=== PATIENT | female | born 1995 | race Caucasian/White ===

== ENCOUNTER 2017-07-03 14:58 | Inpatient (IN) | payer MEDICAID ==
[~2017-07-03] VITALS: Ht 170.2 cm; Wt 82.0 kg
[2017-07-03 17:01] LABS: AUTOMATED NEUTROPHIL # 7.2 TH/MM3 (1.8-7.7); BASOPHIL % 0.3 % (0.0-2.0); EOSINOPHIL % 0.4 % (0.0-4.0); HEMATOCRIT 33.6 % (35.0-46.0); HEMO FLAGS DIFF FINAL; LYMPH % 18.8 % (9.0-44.0); LYMPHOCYTE # 1.8 TH/MM3 (1.0-4.8); MEAN CELL VOLUME 87.3 FL (80.0-100.0); MEAN CORPUSCULAR HEMOGLOBIN 29.6 PG (27.0-34.0); MEAN CORPUSCULAR HGB CONC 33.9 % (32.0-36.0); NEUT % 76.5 % (16.0-70.0); PLATELET COUNT 134 TH/MM3 (150-450); RED BLOOD COUNT 3.84 MIL/MM3 (4.00-5.30); WHITE BLOOD COUNT 9.4 TH/MM3 (4.0-11.0)
[2017-07-03 17:33] LABS: ALT (GPT) 16 U/L (10-53); ANION GAP 10 MEQ/L (5-15); AST (GOT) 16 U/L (15-37); BICARBONATE 22.2 MEQ/L (21.0-32.0); BLOOD UREA NITROGEN 7 MG/DL (7-18); CHLORIDE 107 MEQ/L (98-107); GLOMERULAR FILTRATION RATE 241 ML/MIN (>89); POTASSIUM 3.5 MEQ/L (3.5-5.1); SODIUM (NA) 139 MEQ/L (136-145); URIC ACID 4.5 MG/DL (2.6-6.0)
[2017-07-03 17:36] LABS: ALKALINE PHOSPHATASE 200 U/L (45-117); TOTAL BILIRUBIN ADULT 0.4 MG/DL (0.2-1.0)
[2017-07-03] MEDS ORDERED: SODIUM CHLORIDE 0.9% FLUSH 5 ML FLUSH IV FLUSH PRN (18:15)
[2017-07-03] MEDS ORDERED: ONDANSETRON HCL 4 MG/2 ML VIAL IV PUSH PRN (18:15)
[2017-07-03] MEDS ORDERED: ACETAMINOPHEN 325 MG TAB PO PRN (18:15)
[2017-07-03] MEDS ORDERED: DOCUSATE SODIUM 100 MG CAP PO PRN (18:15)
[2017-07-03] MEDS ORDERED: ONDANSETRON ODT 4 MG TAB PO PRN (18:15)
[2017-07-03] MEDS ORDERED: ZOLPIDEM TARTRATE 5 MG TAB PO PRN (18:15)
[2017-07-03] MEDS: BETAMETHASONE SOD PHOS/ACETATE SUSP 30 MG/5 ML VIAL IM SCH (18:38)
--- NOTE | 2017-07-03 18:42 | PD.PN.STU ---
Subjective Remarks LAURYN Dexter is a 36 week and 1 day IUP with signs of pre-eclampsia and is clinically asymptomatic. Patient is a pleasant single white female who presented in clinic today for a normal checkup with a blood pressure of 130/90, 4+ protein on urinalysis, and 12lb weight gain in 2 weeks. She was sent to the hospital. She has noticed shortness of breath while laying flat for the past two nights and has been experiencing leg swelling over the past week. She denies any nausea, vomiting, headaches or visual changes. The patient has no signs of labor, no leaking, or contractions. The baby is moving well. The patient had late and unremarkable care at 29 weeks. Delayed care was for health insurance reasons. She was treated twice for chlamydia but has not received a test of cure yet. She is hep C negative and strep B negative. The patient does not smoke, drink, or do drugs. She was raised in the foster care system and her foster mom (Isabel) is very involved. Review of systems otherwise negative Past medical history is unremarkable Past surgical history is pertinent for Winn ryan placed for scoliosis. Physical Exam per Dr. Fonseca. General: Patient does not appear ill looking, not in acute distress. Pulmonary: breath sounds bilateral and equal Cardio: No gallops or murmurs heard Abdominal: Fundus height congruent with gestational weeks, no upper quadrant tenderness Pelvic: No signs of labor, no leakage, no blood Impression: , Pre-eclampsia Plan: 24 urine protein collection, steroids for lung development, repeat testing of platelets in a.m., perform chlamydia test of cure Objective Result Diagram: 07/03/17 1630 07/03/17 1630 A/P Assessment and Plan Impression: , Pre-eclampsia Plan: 24 urine protein collection, steroids for lung development, repeat testing of platelets in a.m., perform chlamydia test of cure Arlen Leyva Jul 03, 2017 18:42
--- NOTE | 2017-07-03 18:59 | MH ---
cc: LUPE GRACIA DATE OF ADMISSION 07/03/2017 DATE OF 95 CHIEF COMPLAINT She is 36 and 1 day with signs of preeclampsia and no symptoms, sent over from the office. HISTORY OF PRESENT CONDITION The patient is a pleasant 21-year-old single white female 1, para 0 with an estimated gestational age of 36 weeks and 1 day and an estimated date of confinement of July 30, 2017. We do not have an LMP and her first visit with us was at about the 26 weeks so these are not hard dates. She was a late entry to care because of a difficulty finding out how to get Medicaid and enter into a private office. We saw her through the all access clinic at the [facility]. Her general health is good. She had the routine labs and was found to have Chlamydia and was treated twice but we have not yet gotten a test of cure. She has not had labor. Her Glucola was 98 so she has no gestational diabetes and up until today showed no signs of hypertensive condition. She has had a total of five visits with us and on today's visit at 36 and 1/7 week she came in with a blood pressure of 130/90, a 12 pounds weight gain in 2 weeks and 4+ protein on the urine. She denied headache, nausea, vomiting, blurred vision or right upper quadrant tenderness. PHYSICAL EXAMINATION On physical in the office her fundal height is consistent with 36 weeks. LUNGS: Her lungs were clear. HEART: Heart was regular. DIRECTED EXAMINATION: was in vertex position. She had no CVA tenderness. No hepatosplenomegaly. No liver tenderness. The perineum was normal. The cervix was long, closed, somewhat soft, mid position. EXTREMITIES: She had 3 to 4+ edema of the extremities and normoreflexic. SOCIAL HISTORY She does not smoke, drink or use illicit drugs. Her social history is that she has been in the foster system but had a consistent mom by the name of Criselda who was very involved. She has a significant other who is with her for this . IMPRESSION 36 week intrauterine in a ___ with new onset of hypertension, proteinuria and swelling. We are doing a 24-hour urine, giving her steroids. We have found that her platelets are a little low at 134 but her liver function studies are normal. Uric acid is borderline and fibrinogen is in normal range. PLAN The plan is to watch overnight with continuous monitoring. Allow her to eat. Obtain her 24-hour urine. Complete the steroid course and then follow up as indicated based on her progression or stabilization of disease. Lupe Gracia MD PPC/EO /6:28 PM /6:34 PM
[2017-07-03] MEDS: SODIUM CHLORIDE 0.9% FLUSH 5 ML FLUSH IV FLUSH SCH (21:00)
[2017-07-03] MEDS: SODIUM CHLORIDE 0.9% FLUSH 10 ML FLUSH IV FLUSH SCH (21:00)
[2017-07-03 22:37] LABS: CHLAMYDIA PCR NOT DETECTED (NOT DETECT); NEISSERIA PCR NOT DETECTED (NOT DETECT)
[2017-07-04 05:51] LABS: HEMATOCRIT 32.7 % (35.0-46.0); MEAN CELL VOLUME 87.3 FL (80.0-100.0); MEAN CORPUSCULAR HEMOGLOBIN 29.9 PG (27.0-34.0); MEAN CORPUSCULAR HGB CONC 34.2 % (32.0-36.0); PLATELET COUNT 123 TH/MM3 (150-450); RED BLOOD COUNT 3.75 MIL/MM3 (4.00-5.30); RED CELL DISTRIBUTION WIDTH 13.1 % (11.6-17.2); REVIEW FLAG FINAL; WHITE BLOOD COUNT 9.7 TH/MM3 (4.0-11.0)
[2017-07-04 06:23] LABS: ANION GAP 12 MEQ/L (5-15); AST (GOT) 15 U/L (15-37); BICARBONATE 21.4 MEQ/L (21.0-32.0); BLOOD UREA NITROGEN 6 MG/DL (7-18); CHLORIDE 105 MEQ/L (98-107); GLOMERULAR FILTRATION RATE 206 ML/MIN (>89); POTASSIUM 3.6 MEQ/L (3.5-5.1); SODIUM (NA) 138 MEQ/L (136-145)
[2017-07-04 06:25] LABS: ALT (GPT) 17 U/L (10-53)
[2017-07-04 06:28] LABS: ALKALINE PHOSPHATASE 193 U/L (45-117); TOTAL BILIRUBIN ADULT 0.2 MG/DL (0.2-1.0)
[2017-07-04] MEDS: SODIUM CHLORIDE 0.9% FLUSH 10 ML FLUSH IV FLUSH SCH (07:16)
[2017-07-04] MEDS: SODIUM CHLORIDE 0.9% FLUSH 5 ML FLUSH IV FLUSH SCH (08:39)
[2017-07-04] MEDS: MULTIVIT/MIN/PREN/FOL AC/IRON PRENATAL TAB PO SCH (08:39)
[2017-07-04] MEDS ORDERED: PREN29TA PO (08:57)
--- NOTE | 2017-07-04 10:48 | PD.OB.ANTE ---
Subjective Interval History No c/o, no H/A, BV, abd. pain, good GFM Objective Lab & Micro Results Test 07/03/17 16:30 07/03/17 19:10 07/04/17 05:16 White Blood Count 9.4 TH/MM3 9.7 TH/MM3 Red Blood Count 3.84 MIL/MM3 3.75 MIL/MM3 Hemoglobin 11.4 GM/DL 11.2 GM/DL Hematocrit 33.6 % 32.7 % Mean Corpuscular Volume 87.3 FL 87.3 FL Mean Corpuscular Hemoglobin 29.6 PG 29.9 PG Mean Corpuscular Hemoglobin Concent 33.9 % 34.2 % Red Cell Distribution Width 13.0 % 13.1 % Platelet Count 134 TH/MM3 123 TH/MM3 Mean Platelet Volume 11.0 FL 11.1 FL Neutrophils (%) (Auto) 76.5 % Lymphocytes (%) (Auto) 18.8 % Monocytes (%) (Auto) 4.0 % Eosinophils (%) (Auto) 0.4 % Basophils (%) (Auto) 0.3 % Neutrophils # (Auto) 7.2 TH/MM3 Lymphocytes # (Auto) 1.8 TH/MM3 Monocytes # (Auto) 0.4 TH/MM3 Eosinophils # (Auto) 0.0 TH/MM3 Basophils # (Auto) 0.0 TH/MM3 CBC Comment DIFF FINAL Differential Comment Fibrinogen 449 mg/dL Blood Urea Nitrogen 7 MG/DL 6 MG/DL Creatinine 0.34 MG/DL 0.39 MG/DL Random Glucose 60 MG/DL 152 MG/DL Total Protein 6.0 GM/DL 5.7 GM/DL Albumin 2.8 GM/DL 2.6 GM/DL Calcium Level 8.8 MG/DL 8.9 MG/DL Uric Acid 4.5 MG/DL 4.0 MG/DL Alkaline Phosphatase 200 U/L 193 U/L Aspartate Amino Transf (AST/SGOT) 16 U/L 15 U/L Alanine Aminotransferase (ALT/SGPT) 16 U/L 17 U/L Total Bilirubin 0.4 MG/DL 0.2 MG/DL Sodium Level 139 MEQ/L 138 MEQ/L Potassium Level 3.5 MEQ/L 3.6 MEQ/L Chloride Level 107 MEQ/L 105 MEQ/L Carbon Dioxide Level 22.2 MEQ/L 21.4 MEQ/L Anion Gap 10 MEQ/L 12 MEQ/L Estimat Glomerular Filtration Rate 241 ML/MIN 206 ML/MIN Chlamydia trachomatis DNA (PCR) NOT DETECTED Neisseria gonorrhoeae DNA (PCR) NOT DETECTED Physical Exam GENERAL: Well-nourished, well-developed patient. CARDIOVASCULAR: Regular rate and rhythm without murmurs, gallops, or rubs. RESPIRATORY: Breath sounds equal bilaterally. No accessory muscle use. ABDOMEN/GI: Abdomen soft, non-tender. FHT's: Category: 1 EXTREMITIES: No cyanosis or edema, non-tender, without signs of DVT. Assessment and Plan Assessment and Plan 36 + week PIH, 24h urine in progress, BPR stable, CAT 1 FHR, Slight drop in plt ct. remaining labs all normal. Discussed cont, monitoring on BR, await 24h urine, Patient aware of plan of management Amador Rock MD Jul 04, 2017 10:48
[2017-07-04] MEDS: BETAMETHASONE SOD PHOS/ACETATE SUSP 30 MG/5 ML VIAL IM SCH (18:43)
[2017-07-04 20:59] LABS: URINE TOTAL PROTEIN TIMED 44.8 MG/DL
[2017-07-05] VITALS (140 sets, daily range): BP systolic 108–162; BP diastolic 59–84; PULSE 51–77; RESP 16–18; TEMP 98–98.2; O2SAT 92–100
[2017-07-05 05:54] LABS: HEMATOCRIT 31.1 % (35.0-46.0); MEAN CORPUSCULAR HEMOGLOBIN 30.6 PG (27.0-34.0); MEAN CORPUSCULAR HGB CONC 34.7 % (32.0-36.0); PLATELET COUNT 114 TH/MM3 (150-450); RED BLOOD COUNT 3.53 MIL/MM3 (4.00-5.30); RED CELL DISTRIBUTION WIDTH 12.9 % (11.6-17.2); REVIEW FLAG FINAL; WHITE BLOOD COUNT 10.9 TH/MM3 (4.0-11.0)
[2017-07-05 06:16] LABS: BICARBONATE 22.2 MEQ/L (21.0-32.0); POTASSIUM 3.6 MEQ/L (3.5-5.1)
[2017-07-05] MEDS ORDERED: LACTATED RINGER'S 1000 ML INJ 1,000 ML IV ONE ×2 (07:39→12:00)
--- NOTE | 2017-07-05 07:46 | PD.OB.ANTE ---
Subjective Interval History 24 hour urine is 1.4 gm platelets going down no [place] or blurred vision No UC's, leaking or bleeding GFM Objective Lab & Micro Results Test 07/04/17 17:45 07/05/17 04:13 Urine Total Volume 24 Hours 3160 ML Urine Total Protein 24 Hour 1416 MG/24HR White Blood Count 10.9 TH/MM3 Red Blood Count 3.53 MIL/MM3 Hemoglobin 10.8 GM/DL Hematocrit 31.1 % Mean Corpuscular Volume 88.0 FL Mean Corpuscular Hemoglobin 30.6 PG Mean Corpuscular Hemoglobin Concent 34.7 % Red Cell Distribution Width 12.9 % Platelet Count 114 TH/MM3 Mean Platelet Volume 12.0 FL Blood Urea Nitrogen 8 MG/DL Creatinine 0.43 MG/DL Random Glucose 170 MG/DL Calcium Level 8.4 MG/DL Uric Acid 4.0 MG/DL Aspartate Amino Transf (AST/SGOT) 13 U/L Alanine Aminotransferase (ALT/SGPT) 18 U/L Sodium Level 141 MEQ/L Potassium Level 3.6 MEQ/L Chloride Level 108 MEQ/L Carbon Dioxide Level 22.2 MEQ/L Anion Gap 11 MEQ/L Estimat Glomerular Filtration Rate 184 ML/MIN Physical Exam GENERAL: Well-nourished, well-developed patient. CARDIOVASCULAR: Regular rate and rhythm without murmurs, gallops, or rubs. RESPIRATORY: Breath sounds equal bilaterally. No accessory muscle use. ABDOMEN/GI: Abdomen soft, non-tender. FH 36 cm Long/closed/thick strip category 1 EXTREMITIES: No cyanosis or edema, non-tender, without signs of DVT. Assessment and Plan Assessment and Plan 36 + week PIH, 24h urine in progress, BPR stable, CAT 1 FHR, Slight drop in plt ct. remaining labs all normal. Discussed cont, monitoring on BR, await 24h urine, Patient aware of plan of management HD 3 36 and 2 indices favor primary section discussed risks, benefits and expectations to follow surgery upstairs. Mandy Fonseca MD Jul 05, 2017 07:46
[2017-07-05] MEDS ORDERED: LACTATED RINGER'S 1000 ML INJ 1,000 ML IV SCH ×2 (08:09→17:57)
[2017-07-05] MEDS: SODIUM CHLORIDE 0.9% FLUSH 10 ML FLUSH IV FLUSH SCH (08:17)
[2017-07-05] MEDS: SODIUM CHLORIDE 0.9% FLUSH 5 ML FLUSH IV FLUSH SCH (08:17)
[2017-07-05] MEDS ORDERED: OXYTOCIN 10 UNIT/ML AMP ONE (08:28)
[2017-07-05] MEDS ORDERED: ceFAZolin 2 GM PREMIX 50 ML IV SCH (08:45)
[2017-07-05] MEDS: MULTIVIT/MIN/PREN/FOL AC/IRON PRENATAL TAB PO SCH (09:00)
[2017-07-05] MEDS ORDERED: CITRIC ACID-SODIUM CITRATE LIQ 30 ML UDC PO SCH (09:15)
[2017-07-05] MEDS ORDERED: GLYCOPYRROLATE 1 MG/5 ML SYRINGE IV PUSH ONE (12:00)
[2017-07-05] MEDS ORDERED: LIDOCAINE HCL 1% PF 5 ML AMPULE OTHER ONE (12:00)
[2017-07-05] MEDS ORDERED: ePHEDrine/NS 25 MG/5 ML SYR IV ONE (12:00)
[2017-07-05] MEDS ORDERED: DEXAMETHASONE SOD PHOS 4 MG/ML VIAL IV ONE (12:00)
[2017-07-05] MEDS ORDERED: ROCURONIUM INJ 50 MG/5 ML SYRINGE IV PUSH ONE (12:00)
[2017-07-05] MEDS ORDERED: PHENYLEPHRINE HCL 10 MG/ML VIAL IV ONE (12:00)
[2017-07-05] MEDS ORDERED: OXYTOCIN 10 UNIT/ML AMP IV ONE (12:00)
[2017-07-05] MEDS ORDERED: ONDANSETRON HCL 4 MG/2 ML VIAL IV PUSH ONE ×2 (12:00)
[2017-07-05] MEDS ORDERED: PHENYLEPH/NS 1000 MCG/10 ML SYR IV ONE (12:00)
[2017-07-05] MEDS ORDERED: MORPHINE SULFATE PF 5 MG/10 ML VIAL ONE (12:00)
[2017-07-05] MEDS ORDERED: MIDAZOLAM HCL 2 MG/2 ML VIAL IV ONE (12:00)
[2017-07-05] MEDS ORDERED: PROPOFOL 200 MG/20 ML AMP IV ONE (12:00)
[2017-07-05] MEDS ORDERED: NEOSTIGMINE 3 MG/3 ML SYR IV ONE (12:00)
[2017-07-05] MEDS ORDERED: EPIDURAL-DO NOT ADMINISTER ANTICOAGULANTS PRN (12:22)
[2017-07-05 13:00] LABS: BLOOD GAS BASE EXCESS 1.6 mmol/L (-2-2); BLOOD GAS O2 HGB SATURATION 10 % (90-100); CORD BLOOD GAS HCO3 28 mmol/L (21-29); CORD BLOOD GAS PCO2 66 mmHG (34-78); CORD BLOOD GAS PH 7.25 (7.14-7.42)
[2017-07-05] MEDS ORDERED: ZOLPIDEM TARTRATE 5 MG TAB PO PRN (13:00)
[2017-07-05] MEDS ORDERED: ONDANSETRON HCL 4 MG/2 ML VIAL IV PUSH PRN (13:00)
[2017-07-05] MEDS ORDERED: SODIUM CHLORIDE 0.9% FLUSH 10 ML FLUSH IV FLUSH PRN (13:00)
[2017-07-05 13:01] LABS: CORD BLOOD GAS PO2 11 mmHG (3.0-40.0); DRAW SITE CORD BLOOD; STAT NO
--- NOTE | 2017-07-05 13:02 | PD.OB.DELI ---
Procedure Note Section Procedure Performed by Mandy Fonseca Procedure: Primary Low Transverse Sec Indication for delivery: Maternal medical problems Previous condition: None Informed consent obtained: For anesthesia, For procedure, Other Confirmed correct: Patient, Procedure, Site, Time-out taken Anesthesia: Spinal Medication prior to procedure: As documented in eMAR Monitoring during procedure: Blood pressure monitoring, monitor, Pulse oximetry Urinary catheter: Inserted using sterile technique, To dependent drainage, ml urine output Sterile preparation: Duraprep, In usual fashion, With 2% chlorexidine ( Hibiclens) Position: Supine with wedge to right side Operative Features Skin Incision: Pfannenstiel Uterine Incision: Low transverse w/knife / blunt ext Membranes Ruptured: Artificially, Appearance of fluid (ceal;r) Delivery date: Jul 05, 2017 Delivery time: 13:00 Delivery of : Assisted, Uneventful, Umbilical cord : Male One Minute : 8 Five Minute : 8 Weight: 5 14 Status of infant: Viable, Cord blood, Umbilical cord, Nursery present Placenta delivered: Intact Medications: Antibiotics Estimated blood loss: 500 Procedure tolerated: Well Maternal Condition: Stable Condition: Stable Procedure in detail dictated Mandy Fonseca MD Jul 05, 2017 13:02
[2017-07-05] MEDS ORDERED: MORPHINE SULFATE 4 MG/ML INJ ONE (13:34)
--- NOTE | 2017-07-05 14:27 | MP ---
cc: MANDY GRACIA DATE OF SURGERY: 07/05/2017 1995 PREOPERATIVE DIAGNOSIS 36 and 1/2 week intrauterine with elevated blood pressure, 1.5 grams protein in the urine and declining platelets at 114, down from 134. POSTOPERATIVE DIAGNOSIS 36 and 1/2 week intrauterine with elevated blood pressure, 1.5 grams protein in the urine and declining platelets at 114, down from 134, delivered, mild preeclampsia. PROCEDURE Primary low transverse segment section. ANESTHESIA Spinal with Duramorph. SURGEON Dr. Gracia. PANEL MACHINE TENDER Evans Leyva. FINDINGS A living male weighing 5 pounds 14 ounces with Apgars of 8 at 1 and 8 at 5 was delivered from SHUN position with clear fluid and loose nuchal cord. Cord blood and cord gas was obtained. The placenta was anterior low-lying, it was not a previa. ESTIMATED BLOOD LOSS Estimated blood loss was about 500 ccs. COUNTS Sponge, instrument and needle count were correct. CONDITION Mom and baby tolerated the procedure well. PROCEDURE The patient was taken to the operating room after it was apparent her platelets were declining, her blood pressure was staying moderately elevated and that she was considerably swollen and her 24-hour urine was highly abnormal. There she was administered spinal with Duramorph and she was placed in dorsal supine position with weight off the vena cava. A Mcdowell catheter was placed and sequentials were placed and she then was prepped and draped in usual sterile fashion. A time-out was performed with all in attendance and then after assuring adequate spinal analgesia a Pfannenstiel incision was made with a knife and carried down through to the rectus fascia. The rectus fascia was incised with a knife and down through the rectus muscle. The rectus muscle was in the midline and the parietal peritoneum was entered sharply. A bladder flap was created off the lower uterine segment and then an incision into the intrauterine cavity was made. The infant was delivered with the findings as noted above. The cord was clamped x2, cut and the infant was handed to the neonatology team in attending. A 45-second delay clamping of the cord was performed. Then the placenta was delivered manually intact and will be sent to medics for amniotic membrane grafting. The uterus was exteriorized, cleaned with a lap sponge and closed with Chromic in a running interlocking fashion with a second horizontal imbricating layer and then it was replaced in the abdominal cavity and copious irrigation was performed. Then the rectus muscle and parietal peritoneum were approximated in the midline. The fascia was closed with one Vicryl in a running, non interlocking fashion. The subcutaneous layer was closed with 3-0 plain and skin was closed with 4-0 Vicryl on a Bhupinder needle. Estimated blood loss was average at 500. Sponge, instrument, needle count were correct. She tolerated the procedure well and went to the recovery room stable. Mandy Gracia MD PPC/TLL /12:59 PM /1:54 PM
[2017-07-05] MEDS ORDERED: MAGNESIUM SULFATE 40 GM PREMIX 1,000 ML ONE (14:44)
[2017-07-05] MEDS ORDERED: diphenhydrAMINE HCL 50 MG CAP PO PRN (15:45)
[2017-07-05] MEDS ORDERED: MORPHINE SULFATE 4 MG/ML INJ IV ONE (15:45)
[2017-07-05] MEDS ORDERED: MAGNESIUM SULFATE 40 GM PREMIX 1,000 ML IV SCH (16:00)
[2017-07-05] MEDS ORDERED: EPIDURAL-NALOXONE HCL 0.4 MG/ML AMP IV PUSH PRN (16:00)
[2017-07-05] MEDS ORDERED: EPIDURAL-NO SYSTEMIC NARCOTICS PRN (16:00)
[2017-07-05] MEDS ORDERED: EPIDURAL-DIPHENHYDRAMINE HCL 50 MG CAP PO PRN (16:00)
[2017-07-05] MEDS ORDERED: OXYTOCIN 30 UNITS-500ML PREMIX 500 ML IV ONE (16:00)
[2017-07-05] MEDS ORDERED: EPIDURAL-DIPHENHYDRAMINE HCL 50 MG/ML VIAL IV PUSH PRN (16:00)
[2017-07-05] MEDS ORDERED: ACETAMINOPHEN 1000 MG/100 ML 100 ML IV ONE (16:00)
--- NOTE | 2017-07-05 17:54 | HHI.OB ---
Subjective Post Operative Day: 0 Remarks comfortable on second floor on 2 gm MG/hour for post operative elevations in BP normotensive now no complaints Objective Vitals/I&O Vital Signs Date Time Temp Pulse Resp B/P (MAP) Pulse Ox O2 Delivery O2 Flow Rate FiO2 07/05/17 17:29 62 07/05/17 17:24 62 07/05/17 17:19 61 07/05/17 17:14 65 07/05/17 17:09 71 07/05/17 17:04 70 07/05/17 17:00 72 129/70 (89) 07/05/17 16:59 70 07/05/17 16:54 74 07/05/17 16:49 63 07/05/17 16:44 62 07/05/17 16:39 63 07/05/17 16:24 58 93 07/05/17 16:19 62 96 07/05/17 16:14 59 94 07/05/17 16:09 60 96 07/05/17 16:04 59 96 07/05/17 16:03 98.0 07/05/17 16:00 57 130/60 (83) 07/05/17 15:59 59 95 07/05/17 15:58 18 07/05/17 15:54 68 97 07/05/17 15:49 58 94 07/05/17 15:45 56 129/65 (86) 07/05/17 15:44 60 95 07/05/17 15:39 58 97 07/05/17 15:34 57 96 07/05/17 15:33 18 07/05/17 15:30 133/69 (90) 07/05/17 15:30 57 07/05/17 15:29 61 98 07/05/17 15:24 63 98 07/05/17 15:19 62 97 07/05/17 15:15 75 151/82 (105) 07/05/17 15:14 64 98 07/05/17 15:09 58 98 07/05/17 15:06 18 07/05/17 15:05 56 144/74 (97) 07/05/17 15:04 60 98 07/05/17 15:00 61 151/78 (102) 07/05/17 14:59 62 98 07/05/17 14:55 56 141/77 (98) 07/05/17 14:54 57 98 07/05/17 14:52 56 159/80 (106) 07/05/17 14:49 58 97 07/05/17 14:07 162/84 (110) 07/05/17 13:45 158/79 (105) 07/05/17 13:45 60 17 100 07/05/17 13:30 51 18 100 07/05/17 13:30 161/77 (105) 07/05/17 13:15 99 07/05/17 13:15 60 18 07/05/17 13:00 55 16 108/73 (85) 07/05/17 13:00 98.2 99 Result Diagram: 07/05/1741207/05/17412 Objective Remarks GENERAL: Well-nourished, well-developed patient. CARDIOVASCULAR: Regular rate and rhythm without murmurs, gallops, or rubs. RESPIRATORY: Breath sounds equal bilaterally. No accessory muscle use. ABDOMEN/GI: Abdomen soft, non-tender, bowel sounds present. Incision: Clean, dry and intact. Fundus: Firm, non-tender at umbilicus. GENITOURINARY: Light to moderate bleeding. EXTREMITIES: No cyanosis or edema, non-tender, without signs of DVT. Medications and IVs Current Medications Medications (Trade) Dose Ordered Sig/Jocelyn Route Start Time Stop Time Status Last Admin (NS Flush) 10 ml BID IV FLUSH 07/03/17 21:00 (NS Flush) 2 ml UNSCH PRN IV FLUSH 07/03/17 18:15 (NS Flush) 2 ml BID IV FLUSH 07/03/17 21:00 07/04/17 08:39 (Tylenol) 650 mg Q4H PRN PO 07/03/17 18:15 (Zofran Inj) 4 mg Q6H PRN IV PUSH 07/03/17 18:15 (Zofran Odt) 4 mg Q6H PRN PO 07/03/17 18:15 (Colace) 100 mg BID PRN PO 07/03/17 18:15 (Stuartnatal Plus 3 ) 1 tab DAILY PO 07/04/17 09:00 07/04/17 08:39 (Ambien) 5 mg HS PRN PO 07/03/17 18:15 Cefazolin Sodium/ Dextrose 50 ml @ 100 mls/hr CREATIVE WRITING TEACHER IV 07/05/17 08:45 07/09/17 08:44 07/05/17 08:42 (Bicitra Liq) 30 ml CREATIVE WRITING TEACHER PO 07/05/17 09:15 07/09/17 09:14 07/05/17 08:42 Lactated Ringer's 1,000 ml @ 100 mls/hr Q10H IV 07/05/17 17:57 07/06/17 13:56 Oxytocin 500 ml @ 100 mls/hr ONCE ONCE IV 07/05/17 16:00 07/05/17 20:59 07/05/17 15:57 Oxytocin 500 ml @ 100 mls/hr UNSCH X1 PRN IV 07/05/17 23:00 07/06/17 22:59 (Mylicon Chew) 80 mg QID PRN PO 07/05/17 13:00 (Motrin) 600 mg Q6H PRN PO 07/05/17 13:00 (Percocet 5-325 Mg) 1 tab Q4H PRN PO 07/05/17 13:00 (Percocet 5-325 Mg) 2 tab Q4H PRN PO 07/05/17 13:00 (Tamara-Colace) 2 tab Q12H PRN PO 07/05/17 13:00 (M-M-R Ii Inj) 0.5 ml ONCE ONCE SQ 07/06/17 16:00 07/06/17 16:01 (Boostrix Inj) 0.5 ml ONCE ONCE IM 07/06/17 16:00 07/06/17 16:01 (Benadryl) 50 mg Q4H PRN PO 07/05/17 15:45 07/05/17 15:54 Magnesium Sulfate 1,000 ml @ 50 mls/hr Q20H IV 07/05/17 16:00 07/05/17 15:56 Miscellaneous Information NO SYSTEMIC NARCOTICS TO BE GIVEN FO... UNSCH PRN .XX 07/05/17 16:00 07/06/17 15:59 (Narcan Inj) 0.4 mg UNSCH PRN IV PUSH 07/05/17 16:00 07/06/17 15:59 (Benadryl Inj) 25 mg Q6H PRN IV PUSH 07/05/17 16:00 07/06/17 15:59 (Benadryl) 50 mg Q6H PRN PO 07/05/17 16:00 07/06/17 15:59 Miscellaneous Information ALL NURSING DEPARTMENTS UNSCH PRN .XX 07/05/17 12:22 07/06/17 12:21 Acetaminophen 100 ml @ 400 mls/hr Q8H IV 07/06/17 00:00 07/06/17 08:14 Assessment/Plan Assessment and Plan 36 + week PIH, 24h urine in progress, BPR stable, CAT 1 FHR, Slight drop in plt ct. remaining labs all normal. Discussed cont, monitoring on BR, await 24h urine, Patient aware of plan of management HD 3 36 and 2 indices favor primary section discussed risks, benefits and expectations to follow surgery upstairs. Mandy Fonseca MD Jul 05, 2017 17:54
[2017-07-05] MEDS ORDERED: SODIUM CHLORIDE 0.9% FLUSH 10 ML FLUSH IV FLUSH SCH (21:00)
[2017-07-05] MEDS ORDERED: OXYTOCIN 30 UNITS-500ML PREMIX 500 ML IV PRN (23:00)
[2017-07-05] MEDS: ACETAMINOPHEN 1000 MG/100 ML 100 ML IV SCH (23:52)
[2017-07-06] VITALS (77 sets, daily range): BP systolic 121–176; BP diastolic 65–105; PULSE 50–80; RESP 18; TEMP 96.1–98.6; O2SAT 92–97
[2017-07-06 05:44] LABS: AUTOMATED NEUTROPHIL # 9.7 TH/MM3 (1.8-7.7); BASOPHIL % 0.1 % (0.0-2.0); HEMATOCRIT 30.4 % (35.0-46.0); HEMO FLAGS DIFF FINAL; LYMPH % 12.8 % (9.0-44.0); LYMPHOCYTE # 1.5 TH/MM3 (1.0-4.8); MEAN CELL VOLUME 88.6 FL (80.0-100.0); MEAN CORPUSCULAR HEMOGLOBIN 29.9 PG (27.0-34.0); MEAN CORPUSCULAR HGB CONC 33.7 % (32.0-36.0); MONO % 5.9 % (0.0-8.0); NEUT % 81.2 % (16.0-70.0); PLATELET COUNT 135 TH/MM3 (150-450); RED BLOOD COUNT 3.43 MIL/MM3 (4.00-5.30)
[2017-07-06] MEDS: ACETAMINOPHEN 1000 MG/100 ML 100 ML IV SCH (08:05)
[2017-07-06 08:08] LABS: ALKALINE PHOSPHATASE 162 U/L (45-117); ALT (GPT) 16 U/L (10-53); ANION GAP 8 MEQ/L (5-15); AST (GOT) 17 U/L (15-37); BICARBONATE 25.6 MEQ/L (21.0-32.0); BLOOD UREA NITROGEN 6 MG/DL (7-18); CHLORIDE 105 MEQ/L (98-107); GLOMERULAR FILTRATION RATE 233 ML/MIN (>89); POTASSIUM 3.5 MEQ/L (3.5-5.1); SODIUM (NA) 139 MEQ/L (136-145); TOTAL BILIRUBIN ADULT 0.2 MG/DL (0.2-1.0); URIC ACID 4.2 MG/DL (2.6-6.0)
[2017-07-06] MEDS: MULTIVIT/MIN/PREN/FOL AC/IRON PRENATAL TAB PO SCH ×2 (08:53→08:55)
[2017-07-06] MEDS: IBUPROFEN 600 MG TAB PO PRN ×2 (14:06→20:46)
[2017-07-06] MEDS: oxyCODONE/ACETAMINOPHEN 5 MG/325 MG TAB PO PRN ×2 (14:06→20:46)
[2017-07-06] MEDS ORDERED: DIPHTH/TETANUS/ACEL PERTUSSIS (BOOSTER) 0.5 ML VIAL/PFS IM ONE (16:00)
[2017-07-06] MEDS ORDERED: MEASLES, MUMPS, RUBELLA VACCINE 0.5 ML VIAL SQ ONE (16:00)
[2017-07-06] MEDS: DOCUSATE SODIUM 50 MG/SENNA 8.6 MG TAB PO PRN (20:45)
[2017-07-06] MEDS: SODIUM CHLORIDE 0.9% FLUSH 10 ML FLUSH IV FLUSH SCH (20:46)
--- NOTE | 2017-07-06 22:20 | HHI.OB ---
Subjective Post Operative Day: 1 Remarks Doing well, Pain is well controlled, Baby is in the NICU Bleeding is good Objective Vitals/I&O Vital Signs Date Time Temp Pulse Resp B/P (MAP) Pulse Ox O2 Delivery O2 Flow Rate FiO2 07/06/17 20:30 96.1 55 18 07/06/17 20:30 160/91 (114) 07/06/17 17:15 161/88 (112) 07/06/17 17:15 140/75 (96) 07/06/17 15:10 77 156/85 (108) 07/06/17 12:22 150/84 (106) 07/06/17 12:22 150/84 (106) 07/06/17 10:15 142/92 (109) 07/06/17 10:15 142/92 (109) 07/06/17 10:15 142/92 (109) 07/06/17 09:40 176/105 (128) 07/06/17 09:35 97.7 71 18 153/100 (117) 07/06/17 07:56 98.6 07/06/17 07:56 18 07/06/17 07:56 64 146/85 (105) 07/06/17 07:49 57 94 07/06/17 07:44 53 94 07/06/17 07:39 54 94 07/06/17 07:34 56 94 07/06/17 07:29 56 07/06/17 07:29 94 07/06/17 07:24 58 07/06/17 07:24 94 07/06/17 07:19 57 07/06/17 07:19 94 07/06/17 07:14 57 07/06/17 07:14 94 07/06/17 07:09 94 07/06/17 07:09 56 07/06/17 07:04 94 07/06/17 07:04 56 07/06/17 07:00 58 141/81 (101) 07/06/17 06:59 96 07/06/17 06:59 64 07/06/17 06:54 93 07/06/17 06:54 51 07/06/17 06:49 93 07/06/17 06:49 51 07/06/17 06:44 52 07/06/17 06:44 93 07/06/17 06:39 93 07/06/17 06:39 52 07/06/17 04:09 52 94 07/06/17 04:04 52 93 07/06/17 04:00 50 121/72 (88) 07/06/17 03:59 51 93 07/06/17 03:54 52 93 07/06/17 03:49 53 93 07/06/17 03:44 55 93 07/06/17 03:39 52 93 07/06/17 03:34 54 93 07/06/17 03:29 55 93 07/06/17 03:24 56 93 07/06/17 03:19 56 93 07/06/17 03:14 58 94 07/06/17 03:09 63 92 07/06/17 03:04 56 93 07/06/17 02:54 55 93 07/06/17 02:49 55 93 07/06/17 02:44 56 93 07/06/17 02:39 56 93 07/06/17 02:34 56 94 07/06/17 02:29 56 93 07/06/17 02:24 56 93 07/06/17 02:19 57 93 07/06/17 02:14 57 93 07/06/17 02:09 58 93 07/06/17 02:04 59 93 07/06/17 02:00 58 128/67 (87) 07/06/17 01:59 59 93 07/06/17 01:54 61 93 07/06/17 01:49 61 93 07/06/17 01:44 61 93 07/06/17 01:39 61 94 07/06/17 01:34 62 94 07/06/17 01:29 66 95 07/06/17 01:24 67 95 07/06/17 01:19 73 96 07/06/17 01:14 76 96 07/06/17 01:09 80 96 07/06/17 01:04 74 96 07/06/17 01:00 74 124/65 (84) 07/06/17 00:59 74 96 07/06/17 00:54 64 95 07/06/17 00:49 70 95 07/06/17 00:44 61 96 07/06/17 00:39 61 97 07/06/17 00:34 65 97 07/06/17 00:29 64 96 07/06/17 00:24 70 95 10/13/17 00:19 55 94 07/06/17 00:14 56 94 07/06/17 00:09 54 94 07/06/17 00:04 56 94 07/06/17 00:00 56 130/71 (90) 07/05/17 23:59 62 96 07/05/17 23:54 56 94 07/05/17 23:49 57 94 07/05/17 23:44 58 95 07/05/17 23:40 98.1 07/05/17 23:39 63 95 07/05/17 23:34 94 07/05/17 23:34 58 07/05/17 23:29 58 94 07/05/17 23:24 58 94 07/05/17 23:19 57 95 07/05/17 23:14 61 95 07/05/17 23:09 65 97 07/05/17 23:08 16 07/05/17 23:04 64 97 07/05/17 23:00 62 134/81 (98) 07/05/17 22:59 64 96 07/05/17 22:54 70 97 07/05/17 22:49 75 98 07/05/17 22:44 62 97 07/05/17 22:39 67 98 07/05/17 22:34 64 99 07/05/17 22:29 77 96 07/05/17 22:24 61 93 07/05/17 22:19 59 94 Result Diagram: 07/06/17 0509 07/06/17 0509 Objective Remarks GENERAL: Well-nourished, well-developed patient. CARDIOVASCULAR: Regular rate and rhythm without murmurs, gallops, or rubs. RESPIRATORY: Breath sounds equal bilaterally. No accessory muscle use. ABDOMEN/GI: Abdomen soft, non-tender, bowel sounds present. Incision: Clean, dry and intact. Fundus: Firm, non-tender at umbilicus. GENITOURINARY: Light to moderate bleeding. EXTREMITIES: No cyanosis or edema, non-tender, without signs of DVT. Medications and IVs Current Medications Medications (Trade) Dose Ordered Sig/Jocelyn Route Start Time Stop Time Status Last Admin (NS Flush) 10 ml BID IV FLUSH 07/03/17 21:00 07/06/17 20:46 (NS Flush) 2 ml UNSCH PRN IV FLUSH 07/03/17 18:15 (NS Flush) 2 ml BID IV FLUSH 07/03/17 21:00 07/04/17 08:39 (Tylenol) 650 mg Q4H PRN PO 07/03/17 18:15 (Zofran Inj) 4 mg Q6H PRN IV PUSH 07/03/17 18:15 (Zofran Odt) 4 mg Q6H PRN PO 07/03/17 18:15 (Stuartnatal Plus 3 ) 1 tab DAILY PO 07/04/17 09:00 07/06/17 08:55 (Ambien) 5 mg HS PRN PO 07/03/17 18:15 Cefazolin Sodium/ Dextrose 50 ml @ 100 mls/hr FENCE MANUFACTURE SUPERVISOR IV 07/05/17 08:45 07/09/17 08:44 07/05/17 08:42 (Bicitra Liq) 30 ml FENCE MANUFACTURE SUPERVISOR PO 07/05/17 09:15 07/09/17 09:14 07/05/17 08:42 Oxytocin 500 ml @ 100 mls/hr UNSCH X1 PRN IV 07/05/17 23:00 07/06/17 22:59 (Mylicon Chew) 80 mg QID PRN PO 07/05/17 13:00 (Motrin) 600 mg Q6H PRN PO 07/05/17 13:00 07/06/17 20:46 (Percocet 5-325 Mg) 1 tab Q4H PRN PO 07/05/17 13:00 07/06/17 20:46 (Percocet 5-325 Mg) 2 tab Q4H PRN PO 07/05/17 13:00 07/06/17 14:06 (Tamara-Colace) 2 tab Q12H PRN PO 07/05/17 13:00 07/06/17 20:45 (Benadryl) 50 mg Q4H PRN PO 07/05/17 15:45 07/05/17 15:54 Assessment/Plan Assessment and Plan POD #1 Doing well Routine care. Zuly Lockett MD Jul 06, 2017 22:20
[2017-07-07] MEDS: oxyCODONE/ACETAMINOPHEN 5 MG/325 MG TAB PO PRN ×4 (02:49→23:19)
[2017-07-07] MEDS: IBUPROFEN 600 MG TAB PO PRN ×4 (02:49→23:19)
[2017-07-07] MEDS: SIMETHICONE 80 MG CHEWABLE TAB PO PRN (09:02)
[2017-07-07] MEDS: MULTIVIT/MIN/PREN/FOL AC/IRON PRENATAL TAB PO SCH (09:02)
[2017-07-07 12:35] VITALS: BP 156/91; PULSE 71; RESP 16; TEMP 98.2
--- NOTE | 2017-07-07 16:25 | HHI.OB ---
Subjective Post Operative Day: 2 Remarks Doing well Pain is well controlled Bleeding is normal Baby is doing well Objective Vitals/I&O Vital Signs Date Time Temp Pulse Resp B/P (MAP) Pulse Ox O2 Delivery O2 Flow Rate FiO2 07/07/17 12:35 98.2 71 16 156/91 (112) 07/06/17 20:30 96.1 55 18 07/06/17 20:30 160/91 (114) 07/06/17 17:15 161/88 (112) 07/06/17 17:15 140/75 (96) Result Diagram: 07/06/17 0509 07/06/17 0509 Objective Remarks GENERAL: Well-nourished, well-developed patient. CARDIOVASCULAR: Regular rate and rhythm without murmurs, gallops, or rubs. RESPIRATORY: Breath sounds equal bilaterally. No accessory muscle use. ABDOMEN/GI: Abdomen soft, non-tender, bowel sounds present. Incision: Clean, dry and intact. Fundus: Firm, non-tender at umbilicus. GENITOURINARY: Light to moderate bleeding. EXTREMITIES: No cyanosis or edema, non-tender, without signs of DVT. Medications and IVs Current Medications Medications (Trade) Dose Ordered Sig/Jocelyn Route Start Time Stop Time Status Last Admin (NS Flush) 10 ml BID IV FLUSH 07/03/17 21:00 07/06/17 20:46 (NS Flush) 2 ml UNSCH PRN IV FLUSH 07/03/17 18:15 (NS Flush) 2 ml BID IV FLUSH 07/03/17 21:00 07/04/17 08:39 (Tylenol) 650 mg Q4H PRN PO 07/03/17 18:15 (Zofran Inj) 4 mg Q6H PRN IV PUSH 07/03/17 18:15 (Zofran Odt) 4 mg Q6H PRN PO 07/03/17 18:15 (Stuartnatal Plus 3 ) 1 tab DAILY PO 07/04/17 09:00 07/07/17 09:02 (Ambien) 5 mg HS PRN PO 07/03/17 18:15 Cefazolin Sodium/ Dextrose 50 ml @ 100 mls/hr RADIOGRAPHER ANGIOGRAM IV 07/05/17 08:45 07/09/17 08:44 07/05/17 08:42 (Bicitra Liq) 30 ml RADIOGRAPHER ANGIOGRAM PO 07/05/17 09:15 07/09/17 09:14 07/05/17 08:42 (Mylicon Chew) 80 mg QID PRN PO 07/05/17 13:00 07/07/17 09:02 (Motrin) 600 mg Q6H PRN PO 07/05/17 13:00 07/07/17 09:02 (Percocet 5-325 Mg) 1 tab Q4H PRN PO 07/05/17 13:00 07/06/17 20:46 (Percocet 5-325 Mg) 2 tab Q4H PRN PO 07/05/17 13:00 07/07/17 09:02 (Tamara-Colace) 2 tab Q12H PRN PO 07/05/17 13:00 07/06/17 20:45 (Benadryl) 50 mg Q4H PRN PO 07/05/17 15:45 07/05/17 15:54 Assessment/Plan Assessment and Plan POD #2 BP is too high and will start some labetalol now Doing well Routine care. Zuly Lockett MD Jul 07, 2017 16:25
[2017-07-07 16:30] VITALS: BP 166/87; PULSE 57
[2017-07-07] MEDS ORDERED: CALCIUM GLUCONATE 10% 1 GM/10 ML VIAL IV PUSH PRN (17:30)
[2017-07-07] MEDS ORDERED: NIFEdipine 10 MG CAP PO PRN ×5 (17:30→18:15)
[2017-07-07] MEDS ORDERED: LACTATED RINGER'S 1000 ML INJ 1,000 ML IV SCH (17:45)
[2017-07-07] MEDS ORDERED: NIFEdipine 20 MG CAP PO PRN ×2 (17:50→18:10)
[2017-07-07 18:08] VITALS: BP 164/89; PULSE 58; RESP 18
[2017-07-07 18:30] VITALS: BP 132/75; PULSE 76; RESP 18
[2017-07-07 19:25] VITALS: BP 147/91; PULSE 83; RESP 18; TEMP 97.9
[2017-07-07] MEDS: LABETALOL HCL 100 MG TAB PO SCH (22:24)
[2017-07-07] MEDS: DOCUSATE SODIUM 50 MG/SENNA 8.6 MG TAB PO PRN (23:19)
[2017-07-07 23:25] VITALS: BP 143/90; PULSE 65; RESP 18; TEMP 97.9
[2017-07-08 04:15] VITALS: BP 150/90; PULSE 74; RESP 18; TEMP 98.5
[2017-07-08] MEDS: SIMETHICONE 80 MG CHEWABLE TAB PO PRN (04:21)
[2017-07-08] MEDS: oxyCODONE/ACETAMINOPHEN 5 MG/325 MG TAB PO PRN ×2 (04:21→12:00)
[2017-07-08] MEDS: IBUPROFEN 600 MG TAB PO PRN ×2 (05:39→12:00)
[2017-07-08 08:35] VITALS: BP 159/90; PULSE 66; RESP 18
[2017-07-08] MEDS: MULTIVIT/MIN/PREN/FOL AC/IRON PRENATAL TAB PO SCH (09:08)
[2017-07-08] MEDS: LABETALOL HCL 100 MG TAB PO SCH (09:08)
--- NOTE | 2017-07-08 10:52 | HHI.DCPOC ---
Discharge Care Plan Diagnosis: (1) delivery delivered (2) Hypertension affecting in third trimester Report Symptoms to Your Doctor -Temperature above 100.5 degrees -Redness, of incision or excessive or foul smelling drainage -Unusual pain or calf pain -Increased vaginal bleeding -Painful or difficulty urinating -Feelings of extreme sadness or anxiety after 2 weeks Goals to Promote Your Health * To prevent worsening of your condition and complications * To maintain your health at the optimal level Directions to Meet Your Goals Take your medications as prescribed Follow your dietary instruction Follow activity as directed Ensure plenty of rest for recovery Drink fluids for hydration Keep your appointments as scheduled Take your immunizations and boosters as scheduled If your symptoms worsen call your PCP, if no PCP go to Urgent Care Center or Emergency Room Smoking is Dangerous to Your Health. Avoid second hand smoke Call the 24-hour crisis hotline for domestic abuse at Zuly Lockett MD Jul 08, 2017 10:52
[2017-07-08] MEDS ORDERED: IBUP-232 PO (11:02)
[2017-07-08] MEDS ORDERED: LABE100T2 PO (11:02)
[2017-07-08] MEDS ORDERED: OXYC1TAB63 PO (11:02)
[2017-07-08] MEDS ORDERED: LABETALOL HCL 100 MG TAB PO ONE (11:15)
[2017-07-08 12:55] VITALS: BP 150/87; PULSE 64; RESP 18
[2017-07-08 14:02] VITALS: BP_SYST 130; BP_SYST 143; BP_DIAS 76; BP_DIAS 81; PULSE 80; RESP 18
--- NOTE | 2017-07-08 15:05 | HHI.OB ---
Subjective Post Operative Day: 3 Remarks Doing well Baby is doing well Bleeding is normal Pain is controlled Objective Vitals/I&O Vital Signs Date Time Temp Pulse Resp B/P (MAP) Pulse Ox O2 Delivery O2 Flow Rate FiO2 07/08/17 14:02 143/81 (101) 07/08/17 14:02 80 18 130/76 (94) 07/08/17 12:55 64 18 150/87 (108) 07/08/17 08:35 66 18 159/90 (113) 07/08/17 04:15 98.5 74 18 150/90 (110) 07/07/17 23:25 97.9 65 18 143/90 (107) 07/07/17 19:25 97.9 83 18 147/91 (109) 07/07/17 18:30 18 07/07/17 18:30 76 132/75 (94) 07/07/17 18:08 58 18 164/89 (114) 07/07/17 16:30 57 166/87 (113) Result Diagram: 07/06/17 0509 07/06/17 0509 Objective Remarks GENERAL: Well-nourished, well-developed patient. CARDIOVASCULAR: Regular rate and rhythm without murmurs, gallops, or rubs. RESPIRATORY: Breath sounds equal bilaterally. No accessory muscle use. ABDOMEN/GI: Abdomen soft, non-tender, bowel sounds present. Incision: Clean, dry and intact. Fundus: Firm, non-tender at umbilicus. GENITOURINARY: Light to moderate bleeding. EXTREMITIES: No cyanosis or edema, non-tender, without signs of DVT. Medications and IVs Current Medications Medications (Trade) Dose Ordered Sig/Jocelyn Route Start Time Stop Time Status Last Admin (NS Flush) 10 ml BID IV FLUSH 07/03/17 21:00 07/06/17 20:46 (NS Flush) 2 ml UNSCH PRN IV FLUSH 07/03/17 18:15 (NS Flush) 2 ml BID IV FLUSH 07/03/17 21:00 07/04/17 08:39 (Tylenol) 650 mg Q4H PRN PO 07/03/17 18:15 (Zofran Inj) 4 mg Q6H PRN IV PUSH 07/03/17 18:15 (Zofran Odt) 4 mg Q6H PRN PO 07/03/17 18:15 (Stuartnatal Plus 3 ) 1 tab DAILY PO 07/04/17 09:00 07/08/17 09:08 (Ambien) 5 mg HS PRN PO 07/03/17 18:15 Cefazolin Sodium/ Dextrose 50 ml @ 100 mls/hr MOSS BLEACHER IV 07/05/17 08:45 07/09/17 08:44 07/05/17 08:42 (Bicitra Liq) 30 ml MOSS BLEACHER PO 07/05/17 09:15 07/09/17 09:14 07/05/17 08:42 (Mylicon Chew) 80 mg QID PRN PO 07/05/17 13:00 07/08/17 04:21 (Motrin) 600 mg Q6H PRN PO 07/05/17 13:00 07/08/17 12:00 (Percocet 5-325 Mg) 1 tab Q4H PRN PO 07/05/17 13:00 07/08/17 12:00 (Percocet 5-325 Mg) 2 tab Q4H PRN PO 07/05/17 13:00 07/07/17 23:19 (Tamara-Colace) 2 tab Q12H PRN PO 07/05/17 13:00 07/07/17 23:19 (Benadryl) 50 mg Q4H PRN PO 07/05/17 15:45 07/05/17 15:54 (Trandate) 100 mg Q12HR PO 07/07/17 21:00 07/08/17 09:08 (Calcium Gluconate Inj) 1 gm UNSCH PRN IV PUSH 07/07/17 17:30 Lactated Ringer's 1,000 ml @ 75 mls/hr [id number] IV 07/07/17 17:45 Assessment/Plan Assessment and Plan POD #2 BP is too high and will increase to 200 mg bid...looks much better this afternoon Anemia will start fe after the percocet Doing well Routine care. Home today Zuly Lockett MD Jul 08, 2017 15:05
== END 2017-07-08 15:30 | disposition home or self-care (01) | DRG 766 ==
LOC: INTOOBSV 14:58 → H2EA 14:58 → OBSVTOIN 07-05 07:47 → H1EA 07-06 10:35
PROVIDERS: ADMIT Obstetrics & Gynecology; ATTEND Obstetrics & Gynecology
PROC: 10D00Z1 Extraction of Products of Conception, Low, Open Approach (ICD-10-PCS; principal; 2017-07-05)
DX: O14.04 Mild to moderate pre-eclampsia, complicating childbirth (principal); O44.43 Low lying placenta NOS or without hemorrhage, third trimester; D64.9 Anemia, unspecified; O69.81X0 Labor and delivery complicated by cord around neck, without compression, not applicable or unspecified; O99.02 Anemia complicating childbirth; Z37.0 Single live birth; Z3A.36 36 weeks gestation of pregnancy
CPT/HCPCS: 80048; 80053; 82805; 84157; 84450; 84460; 84550; 85025; 85027; 85384; 86850; 86900; 86901; 87491; 87591; 90715; J0131; J0690; J0702; J1100; J2250; J2270; J2274; J2370; J2405; J2590; J2710; J3010; J3475; J7120; Q0163

== ENCOUNTER 2017-10-08 13:12 | Emergency (ER) | payer MEDICAID, OTHER ==
[~2017-10-08] VITALS: Ht 170.2 cm; Wt 70.5 kg
[~2017-10-08 13:12] MED LIST: IBUP-232 PO; LABE100T2 PO; OXYC1TAB63 PO; PREN29TA PO
[2017-10-08 13:14] VITALS: BP 128/71; PULSE 59; RESP 16; TEMP 98.3; O2SAT 97
[2017-10-08] MEDS ORDERED: PERM5CRE11 TOPICAL (14:12)
--- NOTE | 2017-10-08 14:16 | PD ---
HPI Chief Complaint: Skin Problem Time Seen by Provider: 13:59 Travel History International Travel<30 days: No Contact w/Intl Traveler<30days: No Traveled to known affect area: No History of Present Illness HPI Examined in the presence of female nurse. 22-year-old female presents for evaluation of pruritic rash. Symptoms started one month ago. The rash is the worst in the interdigital webspace of the hands and feet but the rash is also quite pruritic on her thighs. She was seen recently at an outside emergency room one week ago, diagnosed with scabies, given 1 dose of permethrin. She presents today requesting a refill of the permethrin. She reports that her symptoms significantly improved but have not completely resolved. Her boyfriend has similar symptoms was given a refill as well as her child who has similar symptoms. Denies any other constitutional symptoms such as fevers, chills, malaise or weakness, cough, congestion, sore throat, nausea or vomiting , abdominal pain. No other complaints at this time. PFSH Past Medical History Medical History: Denies Significant Hx Tetanus Vaccination: < 5 Years ?: Not Past Surgical History Surgical History: No Previous Surgery Social History Alcohol Use: No Tobacco Use: No Substance Use: No Allergies-Medications (Allergen,Severity, Reaction): Coded Allergies: No Known Allergies (Unverified Adverse Reaction, Unknown, 10/08/17) Reported Meds & Prescriptions Reported Meds & Active Scripts Active Elimite Topical (Permethrin) 5% Cream 1 Applic TOPICAL ONCE Review of Systems Except as stated in HPI: all other systems reviewed are Neg Physical Exam Narrative GENERAL: Well-developed well-nourished female in no acute distress SKIN: Warm and dry. The patient has occasional mildly excoriated papular lesions on the thighs, interdigital web spaces of the hands and feet. HEAD: Atraumatic. Normocephalic. EYES: Pupils equal and round. No scleral icterus. No injection or drainage. ENT: No nasal bleeding or discharge. Mucous membranes pink and moist. NECK: Trachea midline. No JVD. CARDIOVASCULAR: Regular rate and rhythm. No murmur appreciated. RESPIRATORY: No accessory muscle use. Clear to auscultation. Breath sounds equal bilaterally. GASTROINTESTINAL: Abdomen soft, non-tender, nondistended. Hepatic and splenic margins not palpable. MUSCULOSKELETAL: No obvious deformities. No clubbing. No cyanosis. No edema. NEUROLOGICAL: Awake and alert. No obvious cranial nerve deficits. Motor grossly within normal limits. Normal speech. PSYCHIATRIC: Appropriate mood and affect; insight and judgment normal. Data Data Last Documented VS Vital Signs Date Time Temp Pulse Resp B/P (MAP) Pulse Ox O2 Delivery O2 Flow Rate FiO2 10/08/17 13:14 98.3 59 16 128/71 (90) 97 MDM Medical Decision Making Medical Screen Exam Complete: Yes Emergency Medical Condition: Yes Medical Record Reviewed: Yes Differential Diagnosis Scabies, pityriasis rosea, viral exanthem, contact dermatitis, dyshidrotic eczema Narrative Course The patient's history and symptoms are most consistent with scabies. It is reasonable to provide the patient with a refill permethrin one week after her previous treatment. Stable for discharge. Diagnosis Primary Impression: Scabies Additional Instructions: Medications prescribed. Follow-up with primary care as needed and return for any emergent medical conditions. Med/Other Pt SpecificInfo: Prescription(s) given Scripts Permethrin Topical (Elimite Topical) 5% Cream 1 APPLIC TOPICAL ONCE for Scabies, #1 TUBE 0 Refills Prov: Trisha Barnhart MD 10/08/17 Disposition: 01 DISCHARGE HOME Condition: Stable Huy Coats Oct 08, 2017 14:16
== END 2017-10-08 14:36 | disposition home or self-care (01) ==
LOC: NEPA 13:12
DX: B86 Scabies (principal)
CPT/HCPCS: 99281